=== PATIENT | female | born 1965 ===

== ENCOUNTER 2016-06-13 06:56 | Observation (INO) | payer MEDICAID ==
[2016-06-13 07:21] VITALS: BMI 28.1
[2016-06-13 08:41] LABS: BASO # 0.2 K/uL (0.0-0.2); BASO % 1.3 % (0.0-2.0); EOS % 0.1 % (0.0-4.0); HEMATOCRIT 44.5 % (34.0-47.0); LYMPH # 2.1 K/uL (1.0-4.3); LYMPH % 15.1 % (20.0-40.0); MEAN CELL VOLUME 85.9 fl (81.0-99.0); MEAN CORPUSCULAR HEMOGLOBIN 28.2 pg (27.0-31.0); MEAN CORPUSCULAR HGB CONC 32.8 g/dL (33.0-37.0); MEAN PLATELET VOLUME 8.6 fl (7.2-11.7); MONO # 0.9 K/uL (0.0-0.8); MONO % 6.1 % (0.0-10.0); NEUT # 10.9 K/uL (1.8-7.0); NEUT % 77.4 % (50.0-75.0); NRBC % 0.1 % (0.0-0.0); RED CELL DISTRIBUTION WIDTH 14.8 % (11.5-14.5)
[2016-06-13 08:51] LABS: ALB/GLOB RATIO 1.2 (1.0-2.1); ALCOHOL SERUM < 10 mg/dl (0-10); ALKALINE PHOSPHATASE 103 U/L (38-126); ALT/SGPT 32 U/L (9-52); AST/SGOT 27 U/L (14-36); BILIRUBIN,TOTAL 0.7 mg/dl (0.2-1.3); BLOOD UREA NITROGEN 21 mg/dl (7-17); CALCIUM 10.4 mg/dL (8.4-10.2); CARBON DIOXIDE 21 mmol/L (22-30); CHLORIDE 108 mmol/L (98-107); GFR AFRICAN-AMERICAN > 60; GLUCOSE,RANDOM 85 mg/dL (65-105); LIPASE 46 U/L (23-300); POTASSIUM 4.1 MMOL/L (3.6-5.0); SODIUM 150 mmol/l (132-148); TOTAL PROTEIN 9.2 G/DL (6.3-8.2)
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
[2016-06-13] MEDS ORDERED: Sodium Chloride 0.9% 1,000 ML IV STA (10:11)
[2016-06-13 13:52] VITALS: BP 110/64; PULSE 70; RESP 18; TEMP 98.3; O2SAT 100
== END 2016-06-13 13:55 | disposition home or self-care (01) ==
LOC: H.ER 06:56 → SUPCPDRO 06:56 → H.EROBSV 10:14
PROVIDERS: ADMIT Emergency Medicine; ATTEND Emergency Medicine
DX: K29.70 Gastritis, unspecified, without bleeding (principal); E11.9 Type 2 diabetes mellitus without complications; F20.9 Schizophrenia, unspecified; F31.9 Bipolar disorder, unspecified; I10 Essential (primary) hypertension; J45.909 Unspecified asthma, uncomplicated

== ENCOUNTER 2016-06-18 17:31 | Emergency (ER) | payer MEDICAID ==
[2016-06-18 17:31] VITALS: BMI 28.1
[2016-06-18 17:38] VITALS: TEMP 98.5; O2SAT 99
[2016-06-18] MEDS ORDERED: Sodium Chloride 0.9% 500 ML IV STA (18:20)
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
[2016-06-18 18:54] VITALS: BP 126/78; PULSE 72; RESP 16
== END 2016-06-18 18:35 | disposition home or self-care (01) ==
LOC: H.ER 17:31
DX: G40.909 Epilepsy, unspecified, not intractable, without status epilepticus (principal); E11.9 Type 2 diabetes mellitus without complications; F17.200 Nicotine dependence, unspecified, uncomplicated; F20.9 Schizophrenia, unspecified; F31.9 Bipolar disorder, unspecified; F41.9 Anxiety disorder, unspecified; I10 Essential (primary) hypertension; J45.909 Unspecified asthma, uncomplicated

== ENCOUNTER 2016-06-21 13:30 | Emergency (ER) | payer MEDICAID ==
[2016-06-21 13:31] VITALS: BMI 28.1
[2016-06-21 13:34] VITALS: BP 139/63; PULSE 103; TEMP 100.2; O2SAT 98
[2016-06-21] MEDS ORDERED: TDAP Vaccine 0.5 mL Syr IM ONE (14:01)
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
== END 2016-06-21 14:30 | disposition left against medical advice (07) ==
LOC: H.ER 13:30
DX: G40.909 Epilepsy, unspecified, not intractable, without status epilepticus (principal)

== ENCOUNTER 2016-07-02 16:10 | Emergency (ER) | payer MEDICAID ==
[2016-07-02 16:10] VITALS: BMI 28.1
[2016-07-02 16:25] VITALS: BP 123/85; PULSE 70; RESP 20; TEMP 98.7; O2SAT 100
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
== END 2016-07-02 18:07 | disposition home or self-care (01) ==
LOC: H.ER 16:10
DX: M25.50 Pain in unspecified joint (principal)

== ENCOUNTER 2016-07-03 01:12 | Emergency (ER) | payer MEDICAID ==
[2016-07-03 01:12] VITALS: BMI 28.1
[2016-07-03 01:20] VITALS: BP 119/60; PULSE 52; RESP 17; O2SAT 99
[2016-07-03 03:46] LABS: BASO # 0.1 K/uL (0.0-0.2); EOS # 0.2 K/uL (0.0-0.7); EOS % 2.2 % (0.0-4.0); LYMPH # 2.8 K/uL (1.0-4.3); LYMPH % 32.4 % (20.0-40.0); MEAN CELL VOLUME 86.7 fl (81.0-99.0); MEAN CORPUSCULAR HGB CONC 33.4 g/dL (33.0-37.0); MEAN PLATELET VOLUME 8.8 fl (7.2-11.7); MONO # 0.6 K/uL (0.0-0.8); MONO % 7.2 % (0.0-10.0); NEUT % 57.2 % (50.0-75.0); NRBC % 0.1 % (0.0-0.0); RED CELL DISTRIBUTION WIDTH 14.9 % (11.5-14.5); WHITE BLOOD COUNT 8.8 K/uL (4.8-10.8)
[2016-07-03 03:57] LABS: ALB/GLOB RATIO 1.3 (1.0-2.1); ALCOHOL SERUM < 10 mg/dl (0-10); ALKALINE PHOSPHATASE 68 U/L (38-126); ALT/SGPT 32 U/L (9-52); AST/SGOT 30 U/L (14-36); BILIRUBIN,TOTAL 0.6 mg/dl (0.2-1.3); BLOOD UREA NITROGEN 28 mg/dl (7-17); CALCIUM 9.3 mg/dL (8.4-10.2); CARBON DIOXIDE 22 mmol/L (22-30); CHLORIDE 107 mmol/L (98-107); GFR AFRICAN-AMERICAN > 60; GLUCOSE,RANDOM 72 mg/dL (65-105); POTASSIUM 4.3 MMOL/L (3.6-5.0); SODIUM 140 mmol/l (132-148); TOTAL PROTEIN 7.5 G/DL (6.3-8.2)
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
== END 2016-07-03 05:13 | disposition home or self-care (01) ==
LOC: H.ER 01:12
DX: G40.909 Epilepsy, unspecified, not intractable, without status epilepticus (principal); E11.9 Type 2 diabetes mellitus without complications; F20.9 Schizophrenia, unspecified; F31.9 Bipolar disorder, unspecified; F41.9 Anxiety disorder, unspecified; I10 Essential (primary) hypertension; J45.909 Unspecified asthma, uncomplicated

== ENCOUNTER 2016-09-18 13:38 | Emergency (ER) | payer MEDICAID ==
[2016-09-18 13:38] VITALS: BMI 28.1
[2016-09-18 14:24] LABS: BASO # 0.1 K/uL (0.0-0.2); BASO % 0.8 % (0.0-2.0); EOS # 0.1 K/uL (0.0-0.7); EOS % 1.9 % (0.0-4.0); LYMPH # 2.8 K/uL (1.0-4.3); LYMPH % 35.4 % (20.0-40.0); MEAN CELL VOLUME 85.4 fl (81.0-99.0); MEAN CORPUSCULAR HEMOGLOBIN 28.8 pg (27.0-31.0); MEAN CORPUSCULAR HGB CONC 33.7 g/dL (33.0-37.0); MEAN PLATELET VOLUME 8.5 fl (7.2-11.7); MONO # 0.7 K/uL (0.0-0.8); NEUT # 4.2 K/uL (1.8-7.0); NEUT % 52.9 % (50.0-75.0); NRBC % 0.1 % (0.0-0.0); RBC 4.18 Mil/uL (3.80-5.20); RED CELL DISTRIBUTION WIDTH 14.1 % (11.5-14.5); WHITE BLOOD COUNT 7.9 K/uL (4.8-10.8)
[2016-09-18 14:26] LABS: ALB/GLOB RATIO 1.3 (1.0-2.1); ALBUMIN 3.9 g/dL (3.5-5.0); ALT/SGPT 32 U/L (9-52); AST/SGOT 40 U/L (14-36); BLOOD UREA NITROGEN 14 mg/dl (7-17); CALCIUM 8.8 mg/dL (8.4-10.2); GFR AFRICAN-AMERICAN > 60; GFR NON-AFRICAN AMERICAN > 60
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
[2016-09-18] MEDS ORDERED: Sodium Chloride 0.9% 1,000 ML IV STA (15:45)
--- NOTE | 2016-09-18 16:02 | CT ---
PROCEDURE: CT HEAD WITHOUT CONTRAST. HISTORY: head injury with etoh COMPARISON: 06/29/2015 TECHNIQUE: Axial computed tomography images were obtained through the head/brain without intravenous contrast. Radiation dose: Total exam DLP = 858.08 mGy-cm. This CT exam was performed using one or more of the following dose reduction techniques: Automated exposure control, adjustment of the mA and/or kV according to patient size, and/or use of iterative reconstruction technique. FINDINGS: HEMORRHAGE: No intracranial hemorrhage. BRAIN: No mass effect or edema. No atrophy or chronic microvascular ischemic changes. VENTRICLES: Unremarkable. No hydrocephalus. CALVARIUM: Unremarkable. PARANASAL SINUSES: Unremarkable as visualized. No significant inflammatory changes. MASTOID AIR CELLS: Unremarkable as visualized. No inflammatory changes. OTHER FINDINGS: None. IMPRESSION: No intracranial hemorrhage. Unremarkable examination.
[2016-09-18 17:29] VITALS: BP 112/60; PULSE 64; RESP 18; TEMP 98; O2SAT 100
== END 2016-09-18 17:34 | disposition home or self-care (01) ==
LOC: H.ER 13:38
DX: G40.909 Epilepsy, unspecified, not intractable, without status epilepticus (principal); S09.90XA Unspecified injury of head, initial encounter; W19.XXXA Unspecified fall, initial encounter; Y92.89 Other specified places as the place of occurrence of the external cause; E11.9 Type 2 diabetes mellitus without complications; F20.9 Schizophrenia, unspecified; F31.9 Bipolar disorder, unspecified; F41.9 Anxiety disorder, unspecified; I10 Essential (primary) hypertension

== ENCOUNTER 2016-09-19 19:32 | Emergency (ER) | payer MEDICAID ==
[2016-09-19 19:32] VITALS: BMI 28.1
[2016-09-19 19:38] VITALS: BP 135/84; PULSE 100; RESP 20; TEMP 99.1; O2SAT 96
[2016-09-19] MEDS ORDERED: Hydrogen Peroxide 3% Soln (480ml) TP ONE (19:51)
== END 2016-09-19 20:20 | disposition left against medical advice (07) ==
LOC: H.ER 19:32
DX: Z02.89 Encounter for other administrative examinations (principal)

== ENCOUNTER 2016-10-14 22:42 | Emergency (ER) | payer MEDICAID ==
[2016-10-14 22:42] VITALS: BMI 28.1
[2016-10-14 22:48] VITALS: BP 130/70; PULSE 64; RESP 20; O2SAT 96
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
[2016-10-14 22:58] VITALS: TEMP 98.8
== END 2016-10-14 23:27 | disposition home or self-care (01) ==
LOC: H.ER 22:42
DX: B35.3 Tinea pedis (principal); E11.9 Type 2 diabetes mellitus without complications; F20.9 Schizophrenia, unspecified; F31.9 Bipolar disorder, unspecified; F41.9 Anxiety disorder, unspecified; I10 Essential (primary) hypertension; J45.909 Unspecified asthma, uncomplicated

== ENCOUNTER 2016-10-14 23:51 | Emergency (ER) | payer MEDICAID ==
[2016-10-14 23:52] VITALS: BMI 28.1
[2016-10-15 00:31] VITALS: RESP 17; TEMP 98.1
[2016-10-15] MEDS ORDERED: Albuterol-Ipratrop 3 mg / 0.5 (3 ml) UD IH STA ×2 (00:36→00:54)
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
[2016-10-15 02:33] VITALS: BP 133/81; PULSE 81; O2SAT 99
== END 2016-10-15 02:01 | disposition home or self-care (01) ==
LOC: H.ER 23:51
DX: J45.909 Unspecified asthma, uncomplicated (principal); E11.9 Type 2 diabetes mellitus without complications; F20.9 Schizophrenia, unspecified; F31.9 Bipolar disorder, unspecified; F41.9 Anxiety disorder, unspecified; I10 Essential (primary) hypertension

== ENCOUNTER 2016-10-15 12:26 | Observation (INO) | payer MEDICAID ==
[2016-10-15 12:28] VITALS: BMI 28.1
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
--- NOTE | 2016-10-15 13:31 | CARD ---
APPROVED REPORT EKG Measurement Heart [id number] [id number] <Conclusion> Sinus bradycardia with sinus arrhythmia Incomplete RBBB Non-specific ST-T changes Abnormal ECG
[2016-10-15 18:10] VITALS: BP 118/70; PULSE 78; RESP 20; TEMP 98; O2SAT 97
== END 2016-10-15 18:10 | disposition home or self-care (01) ==
LOC: H.ER 12:26 → H.EROBSV 14:42
PROVIDERS: ADMIT Emergency Medicine; ATTEND Emergency Medicine
DX: F10.129 Alcohol abuse with intoxication, unspecified (principal); F20.9 Schizophrenia, unspecified; F31.9 Bipolar disorder, unspecified; I10 Essential (primary) hypertension; J45.909 Unspecified asthma, uncomplicated; F32.9 Major depressive disorder, single episode, unspecified; F41.9 Anxiety disorder, unspecified; J40 Bronchitis, not specified as acute or chronic; R56.9 Unspecified convulsions; E11.9 Type 2 diabetes mellitus without complications; Z79.899 Other long term (current) drug therapy; Y90.8 Blood alcohol level of 240 mg/100 ml or more
CPT/HCPCS: 80320; 82948; 93005; 99281; G0378

== ENCOUNTER 2016-10-23 16:53 | Emergency (ER) | payer MEDICAID ==
[2016-10-23 16:53] VITALS: BMI 28.1
[2016-10-23 17:11] VITALS: BP 148/68; PULSE 68; RESP 18; TEMP 99.2; O2SAT 100
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
== END 2016-10-23 18:11 | disposition home or self-care (01) ==
LOC: H.ER 16:53
DX: K04.7 Periapical abscess without sinus (principal); E11.9 Type 2 diabetes mellitus without complications; F20.9 Schizophrenia, unspecified; F31.9 Bipolar disorder, unspecified; F41.9 Anxiety disorder, unspecified; I10 Essential (primary) hypertension

== ENCOUNTER 2016-11-08 16:42 | Emergency (ER) | payer MEDICAID ==
[2016-11-08 16:43] VITALS: BMI 28.1
[2016-11-08 16:59] VITALS: RESP 18; TEMP 97.1; O2SAT 99
[2016-11-08 17:29] VITALS: BP 149/86; PULSE 61
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
== END 2016-11-08 17:28 | disposition home or self-care (01) ==
LOC: H.ER 16:42
DX: K04.7 Periapical abscess without sinus (principal); E11.9 Type 2 diabetes mellitus without complications; F20.9 Schizophrenia, unspecified; F41.9 Anxiety disorder, unspecified; F31.9 Bipolar disorder, unspecified; I10 Essential (primary) hypertension
CPT/HCPCS: 81025; 96372; 99282; J1885

== ENCOUNTER 2016-12-07 05:10 | Emergency (ER) | payer MEDICAID ==
[2016-12-07 05:10] VITALS: BMI 28.1
[2016-12-07 05:22] VITALS: BP 147/75; PULSE 73; RESP 16; TEMP 98.7; O2SAT 98
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
== END 2016-12-07 05:46 | disposition home or self-care (01) ==
LOC: H.ER 05:10
DX: K04.7 Periapical abscess without sinus (principal); E11.9 Type 2 diabetes mellitus without complications; F20.9 Schizophrenia, unspecified; F31.9 Bipolar disorder, unspecified; F41.9 Anxiety disorder, unspecified; I10 Essential (primary) hypertension; J45.909 Unspecified asthma, uncomplicated

== ENCOUNTER 2016-12-10 14:08 | Emergency (ER) | payer MEDICAID ==
[2016-12-10 14:08] VITALS: BMI 28.1
[2016-12-10 14:12] VITALS: TEMP 97; O2SAT 99
[2016-12-10] MEDS ORDERED: Sodium Chloride 0.9% 1,000 ML IV STA (14:24)
[2016-12-10] MEDS ORDERED: Albuterol-Ipratrop 3 mg / 0.5 (3 ml) UD IH STA (14:26)
[2016-12-10] MEDS ORDERED: Albuterol-Ipratrop 3 mg / 0.5 (3 ml) UD INH STA (14:26)
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
[2016-12-10 15:14] LABS: BASO # 0.1 K/uL (0.0-0.2); BASO % 0.7 % (0.0-2.0); EOS # 0.1 K/uL (0.0-0.7); EOS % 0.7 % (0.0-4.0); HEMATOCRIT 39.1 % (34.0-47.0); LYMPH # 1.6 K/uL (1.0-4.3); LYMPH % 16.3 % (20.0-40.0); MEAN CELL VOLUME 85.3 fl (81.0-99.0); MEAN CORPUSCULAR HEMOGLOBIN 27.9 pg (27.0-31.0); MEAN CORPUSCULAR HGB CONC 32.7 g/dL (33.0-37.0); MEAN PLATELET VOLUME 8.9 fl (7.2-11.7); MONO # 0.4 K/uL (0.0-0.8); MONO % 4.1 % (0.0-10.0); NEUT # 7.5 K/uL (1.8-7.0); NEUT % 78.2 % (50.0-75.0); NRBC % 0.1 % (0.0-0.0); RED CELL DISTRIBUTION WIDTH 14.5 % (11.5-14.5); WHITE BLOOD COUNT 9.5 K/uL (4.8-10.8)
[2016-12-10 15:22] LABS: ALB/GLOB RATIO 1.3 (1.0-2.1); ALKALINE PHOSPHATASE 69 U/L (38-126); ALT/SGPT 22 U/L (9-52); AST/SGOT 15 U/L (14-36); BILIRUBIN,TOTAL 0.6 mg/dl (0.2-1.3); BLOOD UREA NITROGEN 12 mg/dl (7-17); CALCIUM 9.6 mg/dL (8.4-10.2); CARBON DIOXIDE 24 mmol/L (22-30); CHLORIDE 106 mmol/L (98-107); GFR AFRICAN-AMERICAN > 60; GLUCOSE,RANDOM 106 mg/dL (65-105); MAGNESIUM 1.9 MG/DL (1.6-2.3); PHOSPHOROUS 4.2 mg/dl (2.5-4.5); POTASSIUM 3.9 MMOL/L (3.6-5.0); SODIUM 141 mmol/l (132-148); TOTAL PROTEIN 7.6 G/DL (6.3-8.2)
[2016-12-10 15:24] LABS: VENOUS BLOOD GAS BASE EXCESS 3.7 mmol/L (0.0-2.0); VENOUS BLOOD GAS PCO2 49 mmHg (40-60); VENOUS BLOOD PH 7.39 (7.32-7.43)
[2016-12-10] MEDS ORDERED: Albuterol-Ipratrop 3 mg / 0.5 (3 ml) UD ONE (15:25)
[2016-12-10 15:55] LABS: PARTIAL THROMBOPLASTIN TIME 18.8 Seconds (25.6-37.1)
--- NOTE | 2016-12-10 16:23 | RAD ---
HISTORY: Sepsis Patient COMPARISON: 05/01/2016 FINDINGS: LUNGS: No active pulmonary disease. PLEURA: No significant pleural effusion identified, no pneumothorax apparent. CARDIOVASCULAR: No radiographic findings to suggest acute or significant cardiovascular disease. OSSEOUS STRUCTURES: No significant abnormalities. VISUALIZED UPPER ABDOMEN: Normal. OTHER FINDINGS: None. IMPRESSION: No active disease. No significant interval change compared to the prior examination(s). Please note: No preliminary report/ innterpretation of this examination provided by emergency department personnel.
--- NOTE | 2016-12-10 16:38 | CT ---
PROCEDURE: CT HEAD WITHOUT CONTRAST. HISTORY: seizure hx COMPARISON: Comparison is made to 09/18/2016 TECHNIQUE: Axial computed tomography images were obtained through the head/brain without intravenous contrast. Radiation dose: Total exam DLP = 862.1 mGy-cm. This CT exam was performed using one or more of the following dose reduction techniques: Automated exposure control, adjustment of the mA and/or kV according to patient size, and/or use of iterative reconstruction technique. FINDINGS: HEMORRHAGE: No intracranial hemorrhage. BRAIN: No mass effect or edema. No atrophy or chronic microvascular ischemic changes. VENTRICLES: Unremarkable. No hydrocephalus. CALVARIUM: Unremarkable. PARANASAL SINUSES: Unremarkable as visualized. No significant inflammatory changes. MASTOID AIR CELLS: Unremarkable as visualized. No inflammatory changes. OTHER FINDINGS: None. IMPRESSION: Normal CT of the Head.
[2016-12-10 17:08] VITALS: BP 104/57; PULSE 58; RESP 18
--- NOTE | 2016-12-11 07:33 | CARD ---
APPROVED REPORT EKG Measurement Heart [id number] <Conclusion> Sinus bradycardia Incomplete right bundle branch block T wave abnormality, consider anterior ischemia Abnormal ECG
== END 2016-12-10 17:06 | disposition home or self-care (01) ==
LOC: H.ER 14:08
DX: J40 Bronchitis, not specified as acute or chronic (principal); E11.9 Type 2 diabetes mellitus without complications; F20.9 Schizophrenia, unspecified; F31.9 Bipolar disorder, unspecified; F41.9 Anxiety disorder, unspecified; I10 Essential (primary) hypertension; J45.909 Unspecified asthma, uncomplicated; Z86.69 Personal history of other diseases of the nervous system and sense organs
CPT/HCPCS: 36600; 70450; 71010; 80053; 82803; 83605; 83735; 83880; 84100; 84484; 85025; 85610; 85730; 87040; 87205; 87804; 93005; 94640; 96374; 99284; J2930; J7040